=== PATIENT | male | born 1950 | race Caucasian/White ===

== ENCOUNTER → 2019-08-30 08:44 | Outpatient (BNVA) | payer MEDICARE, SELFPAY | PROVIDERS: Family Provider Nurse Practitioner; PCP Nurse Practitioner; Visit Provider Nurse Practitioner | DX: I10 Essential (primary) hypertension (principal) | CPT/HCPCS: 80053 ==

== ENCOUNTER → 2019-09-29 09:12 | Outpatient (BNVA) | payer MEDICARE, SELFPAY | PROVIDERS: Family Provider Nurse Practitioner; PCP Nurse Practitioner; Visit Provider Nurse Practitioner | DX: G89.29 Other chronic pain (principal); M25.562 Pain in left knee; M79.89 Other specified soft tissue disorders | CPT/HCPCS: 73562 ==

== ENCOUNTER → 2019-12-29 14:09 | Outpatient (BNVA) | payer MEDICARE, SELFPAY | PROVIDERS: Family Provider Nurse Practitioner; PCP Nurse Practitioner; Visit Provider Nurse Practitioner | DX: I10 Essential (primary) hypertension (principal); I25.10 Atherosclerotic heart disease of native coronary artery without angina pectoris; G25.81 Restless legs syndrome; R35.0 Frequency of micturition; F41.9 Anxiety disorder, unspecified; R39.11 Hesitancy of micturition | CPT/HCPCS: 80053; 80061; 81000; 85025 ==

== ENCOUNTER → 2020-04-12 08:50 | Outpatient (BNVA) | payer MEDICARE, SELFPAY | PROVIDERS: Family Provider Nurse Practitioner; PCP Nurse Practitioner; Visit Provider Plastic Surgery Plastic Surgery Within the Head and Neck | DX: Z01.812 Encounter for preprocedural laboratory examination (principal); Z11.59 Encounter for screening for other viral diseases | CPT/HCPCS: 87635 ==

== ENCOUNTER → 2020-05-24 09:47 | Outpatient (BNVA) | payer MEDICARE, SELFPAY | PROVIDERS: Family Provider Nurse Practitioner; PCP Nurse Practitioner; Visit Provider Plastic Surgery Plastic Surgery Within the Head and Neck | DX: Z11.59 Encounter for screening for other viral diseases (principal); Z20.828 Contact with and (suspected) exposure to other viral communicable diseases | CPT/HCPCS: 87635 ==

== ENCOUNTER → 2020-06-23 11:48 | Outpatient (BNVA) | payer MEDICARE, SELFPAY | PROVIDERS: Family Provider Nurse Practitioner; PCP Nurse Practitioner; Visit Provider Nurse Practitioner | DX: I10 Essential (primary) hypertension (principal) | CPT/HCPCS: 80053; 80061; 81000 ==

== ENCOUNTER → 2020-11-10 11:29 | Outpatient (BNVA) | payer MEDICARE, SELFPAY | PROVIDERS: Family Provider Nurse Practitioner; PCP Nurse Practitioner; Visit Provider Nurse Practitioner | DX: I10 Essential (primary) hypertension (principal); G25.81 Restless legs syndrome | CPT/HCPCS: 80053; 80061; 83735 ==

== ENCOUNTER → 2021-01-31 08:06 | Outpatient (BNVA) | payer MEDICARE, SELFPAY | PROVIDERS: Family Provider Nurse Practitioner; PCP Nurse Practitioner; Visit Provider Nurse Practitioner | DX: I10 Essential (primary) hypertension (principal); R73.9 Hyperglycemia, unspecified | CPT/HCPCS: 80053; 80061; 81000; 83036; 84443; 85025 ==

== ENCOUNTER → 2021-06-13 08:12 | Outpatient (BNVA) | payer MEDICARE, SELFPAY | PROVIDERS: Family Provider Nurse Practitioner; PCP Nurse Practitioner; Visit Provider Nurse Practitioner | DX: I10 Essential (primary) hypertension (principal); I25.10 Atherosclerotic heart disease of native coronary artery without angina pectoris; Z79.899 Other long term (current) drug therapy | CPT/HCPCS: 80053; 80061; 85025 ==

== ENCOUNTER → 2021-09-07 09:38 | Outpatient (BNVA) | payer MEDICARE, SELFPAY | PROVIDERS: Family Provider Nurse Practitioner; PCP Nurse Practitioner; Visit Provider Nurse Practitioner Family | DX: Z20.822 Contact with and (suspected) exposure to COVID-19 (principal) | CPT/HCPCS: 87635 ==

== ENCOUNTER → 2021-11-20 09:16 | Outpatient (BNVA) | payer MEDICARE, SELFPAY | PROVIDERS: Family Provider Nurse Practitioner; PCP Nurse Practitioner; Visit Provider Nurse Practitioner | DX: M79.671 Pain in right foot (principal); I10 Essential (primary) hypertension | CPT/HCPCS: 73630; 80053; 80061; 85025 ==

== ENCOUNTER → 2022-04-01 15:28 | Outpatient (BNVA) | payer MEDICARE, SELFPAY | PROVIDERS: Family Provider Nurse Practitioner; PCP Nurse Practitioner; Visit Provider Nurse Practitioner | DX: G25.81 Restless legs syndrome (principal); G62.9 Polyneuropathy, unspecified | CPT/HCPCS: 80053; 82607; 84443 ==

== ENCOUNTER → 2022-08-27 10:16 | Outpatient (BNVA) | payer MEDICARE, SELFPAY | PROVIDERS: Family Provider Nurse Practitioner; PCP Nurse Practitioner; Visit Provider Nurse Practitioner | DX: G62.9 Polyneuropathy, unspecified (principal); I10 Essential (primary) hypertension | CPT/HCPCS: 80053; 80061; 84443; 85025 ==

== ENCOUNTER → 2023-03-10 11:39 | Outpatient (BNVA) | payer MEDICARE, SELFPAY | PROVIDERS: Family Provider Nurse Practitioner; PCP Nurse Practitioner; Visit Provider Nurse Practitioner | DX: I10 Essential (primary) hypertension (principal) | CPT/HCPCS: 80053; 80061 ==

== ENCOUNTER → 2023-07-23 16:12 | Outpatient (BNVA) | payer MEDICARE, SELFPAY | PROVIDERS: Family Provider Nurse Practitioner; PCP Nurse Practitioner; Visit Provider Nurse Practitioner | DX: I10 Essential (primary) hypertension (principal); G25.81 Restless legs syndrome; G25.3 Myoclonus; R39.11 Hesitancy of micturition | CPT/HCPCS: 80053; 80061 ==

== ENCOUNTER → 2023-07-24 08:43 | Outpatient (BNVA) | payer MEDICARE, SELFPAY | PROVIDERS: Family Provider Nurse Practitioner; PCP Nurse Practitioner; Visit Provider Nurse Practitioner | DX: I10 Essential (primary) hypertension (principal) | CPT/HCPCS: 81000 ==

== ENCOUNTER → 2023-11-18 14:59 | Outpatient (BNVA) | payer MEDICARE, SELFPAY | PROVIDERS: Family Provider Nurse Practitioner; PCP Nurse Practitioner; Visit Provider Nurse Practitioner | DX: M25.562 Pain in left knee (principal) | CPT/HCPCS: 73562 ==

== ENCOUNTER → 2024-01-14 11:46 | Outpatient (BNVA) | payer MEDICARE, SELFPAY | PROVIDERS: Family Provider Nurse Practitioner; PCP Nurse Practitioner; Visit Provider Nurse Practitioner | DX: I10 Essential (primary) hypertension (principal); F41.9 Anxiety disorder, unspecified; Z12.5 Encounter for screening for malignant neoplasm of prostate | CPT/HCPCS: 80053; 80061; 84443; G0103 ==

== ENCOUNTER → 2024-02-02 12:15 | Outpatient (BNVA) | payer MEDICARE, SELFPAY | PROVIDERS: Family Provider Nurse Practitioner; PCP Nurse Practitioner; Referring Provider Nurse Practitioner; Visit Provider Nurse Practitioner | DX: M17.12 Unilateral primary osteoarthritis, left knee (principal) | CPT/HCPCS: 36415; 80053; 81001; 85025; 99204 ==

== ENCOUNTER 2024-02-10 09:06 | Outpatient (CLI) | payer MEDICARE, SELFPAY ==
--- NOTE | 2024-02-10 09:00 | CT_ITS ---
WS: [id number] CT LEFT KNEE, NONCONTRAST [facility] TECHNIQUE: Noncontrast CT of the LEFT knee to include the LEFT hip and ankle. CLINICAL INFORMATION: surgical planning COMPARISON: None. DLP: 998.[address] scans at [facility] use at least one of these dose optimization techniques: automated e xposure control; mA and/or kV adjustment per patient size (includes targeted exams where dose is matc hed to clinical indication); or iterative reconstruction. FINDINGS: Moderate tricompartment arthritis LEFT knee. Hypertrophic patella. Trace soft tissue edema about the knee. Vascular calcification. Enlarged prostate. Recommend correlation PSA. Extensive sigmoid diverticulosis partially visualized. CT/CT knee LT [place] [id number] IMPRESSION: Images obtained for preoperative purposes.
== END 2024-02-10 09:07 | disposition home or self-care (01) ==
PROVIDERS: PCP Nurse Practitioner; Visit Provider Nurse Practitioner
DX: M17.12 Unilateral primary osteoarthritis, left knee (principal); M79.4 Hypertrophy of (infrapatellar) fat pad; N40.0 Benign prostatic hyperplasia without lower urinary tract symptoms; K57.90 Diverticulosis of intestine, part unspecified, without perforation or abscess without bleeding
CPT/HCPCS: 73700

== ENCOUNTER → 2024-02-11 09:05 | Outpatient (BNVA) | payer MEDICARE, SELFPAY | PROVIDERS: PCP Nurse Practitioner; Visit Provider Family Medicine | DX: Z01.818 Encounter for other preprocedural examination (principal) | CPT/HCPCS: 93005 ==

== ENCOUNTER 2024-02-16 08:03 | Outpatient (CLI) | payer MEDICARE, SELFPAY ==
--- NOTE | 2024-02-16 08:16 | XR_ITS ---
WS: [id number] Left knee, standing AP views of both knees, lateral and patellar view of the left knee, 02/16/2024 Clinical Data: left knee pain Comparison: Left knee, 11/18/2023 Findings: The AP view of the right knee shows minimal medial joint compartment narrowing. The left knee shows medial joint compartment narrowing. There are no fractures or dislocations. The p osterior patella shows minimal spurring. The soft tissues show vascular calcification. XR/XR knees AP WB w LT lmt ORTH Impression: 1. Negative AP view of the right knee. 2. Minimal osteoarthritis of the left knee Kellgren-Jeremy Classification: grade 2 (minimal): definite osteophytes and p ossible joint space narrowing of the left knee.
== END 2024-02-16 08:04 | disposition home or self-care (01) ==
LOC: RAD 08:03
PROVIDERS: PCP Nurse Practitioner; Visit Provider Nurse Practitioner
DX: M25.562 Pain in left knee (principal); M17.12 Unilateral primary osteoarthritis, left knee
CPT/HCPCS: 73560; 73565

== ENCOUNTER 2024-02-19 16:08 | Observation (INO) | payer MEDICARE, SELFPAY ==
--- OUTSIDE RECORDS SUMMARY | 2024-02-05 15:20 | XMS_ITS | Patient Health Record ---
Author Name Unknown Organization [facility] Address [address] [place] [address] Care Team Providers Care Canvas Cutter Machine Name Role Phone Chris Lin Unavailable [phone] Reason For Referral No Information Medications Medication SIG (Take, Route, Frequency, Duration) Notes Start Date End Date Status Cetirizine HCl 10 MG Take 1 tab(s) by mouth qd prn allergies. Oral for 30 Cetirizine HCl 10mg Tablet Take 1 tab(s) by mouth qd prn allergies. 01/22/2012 Active clonazePAM 1 MG 1 tab po qd Oral for 30 Clonazepam 1mg Tablet 1 tab po qd 01/22/2012 Active Aspirin (ASA) for 0 *please review f or potential update for e-prescription and drug interaction check* Aspirin (ASA) 01/22/2012 Active Tamsulosin HCl 0.4 MG 1 cap(s) po qd prn Oral for 30 Tamsulosin HCl 0.4mg Capsules 1 cap(s) po qd prn 01/22/2012 Active Lisinopril 5 MG Take 1 tablet(s) by mouth daily Oral for 30 Lisinopril 5mg Tablet Take 1 tablet(s) by mouth daily 01/22/2012 Active Nitrostat 0.4 MG Dissolve 1 tablet(s) under the tongue may repeat every 5 minutes. Maximum of 3 doses in 15 minutes Sublingual for 30 Nitrostat 0.4mg Tablets, Sublingual Dissolve 1 tablet(s) under the tongue may repeat every 5 minutes. Maximum of 3 doses in 15 minutes 01/22/2012 Active HYDROcodone-Acetami nophen 7.5-500 mg 1 tab(s) po BID prn severe pain ORAL for 30 *please review for potential update for e-prescription and drug interaction check* Hydrocodone/Acetami nophen 7.5mg/500mg Tablet 1 tab(s) po BID prn severe pain 01/22/2012 Active PARoxetine HCl 20 MG Oral for 0 Paroxetine HCl 20mg Tablet 01/22/2012 Active Problems Problem Type SNOMED Code ICD Code Onset Dates Problem Status W/U Status Risk Notes Problem Chronic hepatitis C (951736998) Chronic hepatitis C (without coma) (070.54) 2 Active confirmed [facility]-[id number] 1- Problem Shoulder pain (66848513) Shoulder pain (719.41) 2 Problem resolved confirmed [facility]-[id number] 1- Plan Of Treatment No Information Medical (General) History Surgical History Surgery Date(Month/Year) CholecystectomyTonsillectomy Other Surgeries:Hernia RepairVasectomyVaricose vein stripping;Bilateral carpal tunnel release;Ulnar nerve transplant in the right arm;
[2024-02-19] VITALS (16 sets, daily range): BP systolic 94–144; BP diastolic 51–83; PULSE 62–70; RESP 16–19; TEMP 36.1–36.8; O2SAT 93–99
--- OUTSIDE RECORDS SUMMARY | 2024-02-19 10:20 | XMS_ITS | Patient Health Record ---
Author Name Unknown Organization [facility] Address [address] [place] [address] Care Team Providers Care Bus Driver [employer] Name Role Phone Chris Lin Unavailable [phone] Reason For Referral No Information Medications Medication [...] Status Risk Notes Problem Chronic hepatitis C (919775367) Chronic hepatitis C (without coma) (070.54) 2 Active confirmed [facility]-[id number] 1- Problem Shoulder pain (14578844) Shoulder pain (719.41) 2 Problem resolved confirmed [facility]-[id number] 1- Plan Of Treatment No Information Medical (General) History Surgical History Surgery Date(Month/Year) CholecystectomyTonsillectomy Other Surgeries:Hernia RepairVasectomyVaricose vein stripping;Bilateral carpal tunnel release;Ulnar nerve transplant in the right arm;
[2024-02-19] MEDS: sodium chloride 0.9% 1,000 ML 30 ML IV (10:59)
[2024-02-19] MEDS: acetaminophen 1,000 MG/100 ML PIGGYBACK 400 MG IV ×2 (11:01→19:37)
[2024-02-19] MEDS: CELEcoxib 200 mg Capsule 400 MG PO (11:02)
--- NOTE | 2024-02-19 11:11 | P.HPUD_ITS ---
Surgery/Procedure H&P Update DATE OF PROCEDURE: February 19, 2024 DATE H&P PERFORMED: 02/11/24 H&P UPDATE INFORMATION: I have reviewed H&P completed within last 30 days, I have examined patient prior to procedure, No changes to prior documentation and H&P is in [facility] EMR on date indicated PLANNED PROCEDURE: Operation Date: 02/19/24 12:05 Proposed Procedures p Justin Robot Total Knee Arthroplasty(Left) - Bridgette Palmer MD Related Problem List Diagnoses (1) Osteoarthritis of left knee: Qualifiers: Osteoarthritis type: primary Qualified Code(s): M17.12 - Unilateral primary osteoarthritis, left knee
--- NOTE | 2024-02-19 11:48 | ANES.PREANE2 ---
Pre-Anesthetic Assessment Height/Weight: Height 1.8 m Weight 91.626 kg Temp Pulse Resp BP Pulse Ox O2 Del Method 97 F L 70 18 144/69 97 Room Air 02/19/24 10:47 02/19/24 10:47 02/19/24 10:47 02/19/24 10:47 02/19/24 10:47 02/19/24 10:47 Operation Date: 02/19/24 12:05 Proposed Procedures p Justin Robot Total Knee Arthroplasty(Left) - Bridgette Palmer MD Last intake: Intake Last Liquid Date 02/18/24 Last Liquid Time 00:00 Last Solid Date 02/18/24 Last Solid Time 17:00 Social Tobacco 60 pack years Exam alert, oriented x 3, clear to auscultation bilaterally and regular rate & rhythm Airway Submandibular: within normal limits Cervical ROM: within normal limits Mallampati: Class I Pulmonary prolonged expiratory phase CV/HEM Coronary Artery Disease and Hypertension None reported Hepatic None reported GI None reported Metabolic None reported Musc/skel None reported Neuropsych None reported Anesthetic Plan ASA status: 3 Anesthesia: Regional (specify below) Other: SPINAL plus adductor canal block for post op pain Risk of > 500 ml blood loss (7ml/kg in children): Yes, adequate IV access and fluids planned Medications/Allergies Home Medications Medication Instructions Recorded Confirmed Last Taken Type nitroglycerin 0.4 mg sublingual 0.4 mg sublingual Q5M PRN chest 06/14/21 02/18/24 02/18/24 Rx tablet (Nitrostat) pain 30 days #30 tabs diclofenac sodium 1 % topical gel 2 g topical QID PRN pain #100 grams 11/20/21 02/18/24 02/18/24 Rx (Voltaren Arthritis Pain) amlodipine 5 mg tablet 5 mg PO DAILY #100 tabs 01/14/24 02/19/24 02/18/24 Rx atorvastatin 40 mg tablet 40 mg PO DAILY #100 tabs 01/14/24 02/18/24 02/18/24 Rx gabapentin 300 mg capsule See Rx Instructions PO .COMPLEX 01/14/24 02/19/24 02/19/24 Rx #300 caps oxybutynin chloride 5 mg tablet 5 mg PO DAILY #100 tabs 01/14/24 02/19/24 02/18/24 Rx tamsulosin 0.4 mg capsule (Flomax) 0.4 mg PO DAILY #100 caps 01/14/24 02/19/24 02/18/24 Rx aspirin 81 mg tablet,delayed 81 mg PO DAILY 02/11/24 02/18/24 02/14/24 History release cyanocobalamin (vitamin B-12) 1,000 mcg PO DAILY 02/11/24 02/19/24 02/19/24 History 1,000 mcg tablet potassium citrate 99 mg capsule 99 mg PO DAILY 02/11/24 02/19/24 02/18/24 History Allergies Allergy/AdvReac Type Severity Reaction Status Date / Time latex Allergy Unknown Unknown Verified 02/11/24 09:20 apixaban [From Eliquis] Allergy ALGY-Difficulty Verified 02/11/24 09:20 Breathing lincomycin [From Lincocin] Allergy chest Verified 02/11/24 09:20 pain, shortness of breath Current Medications Generic Name Dose Route Start Last Admin Trade Name Freq PRN Reason Stop Dose Admin Sodium Chloride 1,000 mls @ 30 mls/hr 02/19/24 10:30 02/19/24 10:59 Sodium Chloride 0.9% IV 02/20/24 10:29 30 mls/hr .Q24H JANNETH Administration PFSH Anesthesia Medical History Osteoarthritis of left knee Personal history of nicotine dependence Urinary hesitancy Pacemaker Restless legs syndrome with nocturnal myoclonus Anxiety Seasonal allergic rhinitis Urine frequency ASHD (arteriosclerotic heart disease) Essential (primary) hypertension History of skin cancer Head History of cardiac pacemaker in situ 2018 Surgical History History of heart bypass surgery 5 grafts History of decompression of ulnar nerve Right arm with transplant History of nasal surgery History of arthroscopy of right shoulder History of hernia repair Right History of vasectomy History of carpal tunnel surgery Bilateral History of tonsillectomy History of cholecystectomy Family History Mother CAD (coronary artery disease) Hypertension Father Hypertension Other Diabetes Social History Smoking and tobacco/nicotine status: current every day tobacco/nicotine user cigarettes Second hand smoke exposure: No Alcohol intake: unknown Substance/Drug Use: never Adopted: No Caregiver/support person: No Lives independently: Yes Household members: spouse Housing: House Marital status: Current occupational status: retired Do you think of yourself as: Straight/Heterosexual Current gender identity: Male Data Anesthesia Cardiac Studies: No Data to Display
[2024-02-19] MEDS: ceFAZolin 2,000 MG in sodium chloride 0.9% (plus) 50 ML 100 MG IV (12:09)
--- NOTE | 2024-02-19 12:39 | ANES.PROC ---
Anesthesia Procedures Procedure/Date: 02/19/24 Nerve Block ^: Nerve Block 1: Main Anesthesia: spinal anesthesia block Time Out Performed: Yes Consent: requested by attending/covering physician Nerve block location: adductor canal (left) Anesthesia monitors applied: pulse oximetry, EKG, BP cuff and oxygen Nerve block position: supine Anesthetic Used: ropivicaine 0.5% Amount of anesthesia used (mL): 30 Ultrasound used to: recognize landmarks Nerve Stimulator Used?: No Interscalene/Femoral BLK: 4 stimuplex 21 g needle used for position and inplane approach and visualize local anesthetic spread Injection: neg aspiration of heme Patient Tolerated Procedure: no complications Complications: none
[2024-02-19] MEDS: tranexamic acid 1,000 mg/10mL SDV 1000 MG IV (12:50)
[2024-02-19] MEDS: ceFAZolin 1,000 mg SDV 2000 MG IRRIGATION (13:18)
[2024-02-19] MEDS: BUPivacaine liposome 13.3 mg/mL SDV 20 mL 266 MG INFILTRATI (13:19)
[2024-02-19] MEDS: BUPivacaine 0.5% INJ 30 mL 20 ML INJECTION (13:19)
[2024-02-19] MEDS: vancomycin 1,000 MG SDV 1000 MG XX (13:19)
--- NOTE | 2024-02-19 15:00 | XRR_ITS ---
PROCEDURE INFORMATION: Exam: XR Left Knee Exam date and time: 02/19/2024 3:11 PM Age: 74 years old Clinical indication: Device placement; Joint replacement hardware; Prior surgery; Surgery date: Post-operative (0-2 days); Surgery type: Left total knee arthroplasty; Additional info: Status post left total knee arthroplasty TECHNIQUE: Imaging protocol: Radiologic exam of the left knee. Views: 1 or 2 views. COMPARISON: CR XR knees AP WB w LT lmt ORTH 02/16/2024 8:24 AM FINDINGS: Bones/joints: New total knee replacement in good alignment. No evidence of infection, fracture or loosening. There are 3 lucencies well-demarcated within the distal femur proximal to the replacement. This could be postoperative but no metal was seen or abnormality seen on these and in a joshi 3 days ago in this needs to be clinically correlated. Joint air. Three well demarcated lucencies are seen on the lateral view involving the proximal tibia just distal to the replacement which are new. Soft tissues: Normal. Vasculature: Stable vascular calcifications. XR/XR knee LT 1-2V [id number] IMPRESSION: 1. New total knee replacement. 2. Multiple lucencies in both the tibia and femur questionably prior instrumentation. This needs clinical and surgical correlation.
--- NOTE | 2024-02-19 15:05 | P.OP_ITS ---
Operative Report Date of procedure: February 19, 2024 Pre-op diagnosis: Severe degenerative osteoarthritis left knee with varus deformity Post-op diagnosis: Severe degenerative osteoarthritis left knee with varus deformity Post-op findings: Severe degenerative osteoarthritis left knee with varus deformity. Procedure done: Left total knee arthroplasty with Justin guidance Implants: [employer] [place] total knee system with a size 6 triathlon beaded cruciate retaining femur left, a triathlon titanium tibial component size 6 beaded, a triathlon X3 tibial bearing CS insert size 6 X 9 mm and a beaded triathlon titanium asymmetric patella size 38 x 11 mm Specimens removed/disposition: Bone, disposed of Pathology: None Surgeon: Bridgette Palmer MD Industrial Fabric Cutter: Adenike Nieto, nurse practitioner, surgical assistance was necessary for positioning, retraction, implantation, and closure for the surgical procedure. Anesthesia: Spinal (With MAC, ASA 3) Estimated blood loss (mL): 70 Tourniquet time (min): 0 (No Butler) IV fluids (mL): 450 Urine output (mL): 500 Complications: None Findings: Severe degenerative osteoarthritis with varus deformity and minimal flexion contracture. Complete denudement of bone. Condition: stable Disposition: PACU (Then to floor for postoperative rehabilitation and pain management) Brief History: This 74-year-old gentleman presented to the clinic with complaints of severe left knee pain. At time of presentation, he stated his pain was 5 of 10, but he also noted it worsened as the day went on. He describes the pain as under the kneecap and sharp and stabbing. Patient also noted his knee swelled and he would use ice. He had performed a home exercise program without success and relief of the pain. Conservative treatments were discussed in detail with the patient. He had had the pain for several years and had it worsening with no response to conservative managements. He had taken oral anti-inflammatories as well as use topical anti-inflammatories. He also had had previous cortisone injections to the knee. Patient wished to proceed with total knee arthroplasty. Risks and complications were discussed with patient and his . Consents were signed in the office. Questions were answered. Procedure: The patient was brought to the operating theater, and after undergoing spinal anesthetic, with MAC and with supplemental adductor canal block, ASA 3, the left lower extremity was prepped with Dura-Prep and draped in usual fashion following placement of a tourniquet high on the leg. The leg was then draped free.? Tourniquet was not elevated during the case.? A surgical pause was performed, and at the time of the surgical pause, we confirmed the site and side of surgery. Additionally, we confirmed the appropriate and timely administration of preoperative antibiotics, Ancef 2 g.? The availability of equipment was confirmed, and the patient's identity was verbalized as well. Following the surgical pause, an incision was made centering over the patella continuing proximally and distally as necessary to allow access to the knee joint. Dissection continued through skin and soft tissues using a scalpel. Hemostasis was obtained using electrocautery. The skin incision was followed by a median parapatellar arthrotomy. The leg was extended and the patella was able to be displaced laterally.? Appropriate arrays and markers were placed in appropriate position for use of the Justin.? Preoperative planning had been accomplished and was discussed in detail with the Justin medical collections representative.? Intraoperative mapping of the femur and tibia was accomplished after the arrays were placed.? Internal markers were also placed.? Once we had accomplished the Justin mapping, we began the appropriate resections for placement of the prosthesis.? The plan was for a cruciate retaining right total knee arthroplasty. Once appropriate mapping had been accomplished retraction was established using manual retraction by surgical technicians and also the Justin leg positioner and retractors.? The knee was evaluated.? There was significant osteoarthritic change as well as very minimal flexion contracture as well as varus deformity.? Appropriate bone resection was accomplished using the Justin.? The femur was sized to a size 6.? Following femoral cuts, attention was directed to the tibia.? Osteophytes were removed prior to this portion of the procedure.? We had performed a minimal medial release at the beginning of the procedure to allow for placement of the array.? Proximal tibia was evaluated, and it was felt that appropriate size for the tibia was a size 6.? Tray was noted to fit nicely with good coverage.? Rim fit was accomplished with the size 6. A trial reduction was accomplished after osteophytes have been removed as well as the medial and lateral menisci.? We had removed the anterior cruciate ligament at the beginning of the case and preserved the posterior cruciate ligament.? Trial reduction was accomplished with a size 6 femoral cruciate retaining component, a size 6 tibial tray and a size 6 CS tibial bearing insert which was 9 mm.? Secondary to the balancing of the knee, we elected to place a 9 mm insert for the actual component. Alignment was felt to be appropriate as well.? Trial components were removed after the femur had been drilled.? Prior to removal of the tibial tray which had been pinned in position with appropriate rotation as determined by the Justin plan, we broached the tibia.? Subsequently, the 4 drill holes were made for the prosthetic component.? All trial components were removed, and the wound was irrigated.? Plans were made for insertion of the prosthetic components.? Prior to this, the patella was manually prepared.? After resection of the articular surface with the jogging system, it was measured and measured a 38 mm patella.? We resected approximately 10 mm of patella.? Patellar height was restored with the patellar component. Once again, the wound was irrigated.? The Tritanium tibia was impacted into position.? The beaded femur was then impacted into position in a cementless fashion. The CS tibial insert was placed prior to placement of the femoral component. The patella was pressed into position with a patellar clamp.? Exparel was injected about the components deep and superficially.? The knee was then copiously irrigated with betadine and saline and suctioned dry. Attention was then directed to closure. Closure was accomplished with 0 Vicryl in the fascial tissues.? The suture line of 0 Vicryl was supplemented with strata fix, #1, with a running stitch from proximal to distal and a second running stitch from distal to proximal.? This was followed by Surgiflo and vancomycin powder.? Following this, a 2-0 STRATAFIX was used in the subcutaneous tissues, and the skin was closed with 3-0 Strata fix.? Care was taken to assure an excellent subcutaneous as well as skin closure.? A sterile dressing was then placed consisting of Dermabond Prineo, OpSite, ABD, sterile soft roll, and an Maurisio wrap including over the foot. The patient was returned the Recovery Room in a satisfactory condition. X-rays were obtained and reviewed there.? The patient will be discharged to the floor for postoperative rehabilitation and pain management. Related Problem List Diagnoses (1) Osteoarthritis of left knee:
--- NOTE | 2024-02-19 15:35 | ANE.PACU2 ---
Inpatient post-anesthesia follow up: Airway intact: Yes Vital signs: Temperature 97.3 F Pulse Rate 65 Respiratory Rate 16 Blood Pressure 113/62 Pulse Oximetry 94 Oxygen Delivery Me thod Room Air Oxygen Flow Rate 8 Fraction of Inspir ed Oxygen Hydration adequate: Yes Nausea and vomiting: No Pain level: Other (controlled) Mental status: Baseline Additional Comments: no apparent anesthetic complications noted
--- NOTE | 2024-02-19 15:44 | SUR.EXTENDED ---
Patient in extended care. PAtient is awake and alert on room air with sats at 94%. Patient can move both feet/legs but states cannot feel pain. PEdal pulse to left foot strong. dressing to left knee is dry and intact. Patient has charles draining clear yellow urine. first ice in place on left knee. patient taking fluid and eating crackers. VSS. will continue to monitor in extended care phase.
--- NOTE | 2024-02-19 16:33 | SUR.EXTENDED ---
Patient transported to room 269, Nurse Jean and aid in room on arrival. Patient awake and alert. Patient still able to move both legs and feet, reports no pain. Dressing in place and dry and intact. charles in place and draining. VS obtained: 97.3 temp, 119/74, 72 hr, 17 rr, 94% RA. Patient's family at bedside on transport.
[2024-02-19] MEDS: CELEcoxib 200 mg Capsule PO (17:26)
[2024-02-19] MEDS: calcium carbonate 500 mg Chew Tablet 1000 MG PO (17:26)
[2024-02-19] MEDS: chlorhexidine gluconate 0.12% Btl 473 mL 30 ML MUCOUS MEM ×2 (17:26→20:04)
[2024-02-19] MEDS: iron polysaccharide complex 150 mg Capsule PO (17:26)
[2024-02-19] MEDS: sennosides-docusate Tablet 2 TAB PO (17:26)
[2024-02-19] MEDS: tranexamic acid 1,000 MG/100 ML PREMIX 600 MG IV (19:59)
[2024-02-19] MEDS: ceFAZolin 2,000 mg SDV 2000 MG IVP (20:04)
[2024-02-19] MEDS: water for injection-sterile 20 ML 60 ML (20:04)
[2024-02-19] MEDS: oxyCODONE 5 mg IR Tab/Cap PO (23:01)
[2024-02-20 04:00] VITALS: BP 126/66; PULSE 61; RESP 18; TEMP 36.7; O2SAT 94
[2024-02-20] MEDS: acetaminophen 1,000 MG/100 ML PIGGYBACK 400 MG IV (04:57)
[2024-02-20] MEDS: CELEcoxib 200 mg Capsule PO (04:58)
[2024-02-20] MEDS: gabapentin 300 mg Capsule PO (04:58)
[2024-02-20] MEDS: ceFAZolin 2,000 mg SDV 2000 MG IVP (04:59)
[2024-02-20 05:26] LABS: Basophils % 0.2 %; Eosinophils # 0.2 10^3/uL (0.0-0.8); Eosinophils % 2.2 %; Hematocrit 38.3 % (37-53); Lymphocytes # 0.8 10^3/uL (0.8-4.8); Lymphocytes % 9.2 %; Mean Corpuscular HGB Conc 32.6 g/dL (30-55); Mean Corpuscular Hemoglobin 30.9 pg (27-33); Mean Corpuscular Volume 94.8 fl (82-101); Mean Platelet Volume 10.6 fL (7.4-10.4); Monocytes # 0.7 10^3/uL (0.2-0.9); Monocytes % 8.4 %; Neutrophils # 6.94 10^3/uL (1.8-7.7); Neutrophils % 79.7 %; Nucleated Red Blood Cells % 0 %; Platelet Count 149 10^3/cmm (157-399); Red Blood Count 4.04 10^6/uL (3.85-5.65); Red Cell Distribution Width 12.5 % (12.1-15.1); White Blood Count 8.71 10^3/uL (3.29-11.43)
[2024-02-20 05:39] LABS: Anion Gap 12.3 (5-19); Blood Urea Nitrogen 15 mg/dL (8-23); Calcium 8.1 mg/dL (8.5-10.5); Carbon Dioxide 23 mmol/L (22-29); Chloride 108 mmol/L (98-107); Creatinine Clr Calc Pharmacy 65.4459; Glucose 104 mg/dL (65-115); Osmolality Calculated 289 mOsm/kg (285-295); Potassium 4.3 mmol/L (3.5-5.1); Sodium 139 mmol/L (136-145)
--- NOTE | 2024-02-20 06:05 | PC.NURSE ---
So when I was walking around at 1:30 am I smelled smoke and I was like what the heck just happened. So I informed Abdulkadir and Krupa. Just a heads up that he was accusing us and wanting to report and also do a court order which was not really necessary at all so he was just a little ticked at the charge nurse and some of the TRACK BROOM OPERATOR's
--- NOTE | 2024-02-20 06:19 | PC.NURSE ---
Addendum entered by Demi Villanueva CNA 02/20/24 06:46: This aide was alerted by Deann Zazueta, a respiratory therapist, of a smoke smell in the hallway. This aide along with the respiratory therapist, Henrry Cervantes RN and Lauri Montes De Oca CNA followed the scent to room 269 where the smell was very prominent. The smell was strongest in the patients bathroom. The nurse proceeded to ask the patient if he had smoked in his room, to which the patient denied. The nurse noticed the patients belongings and a pack of cigarettes were visible. The nurse asked the patient again if he had smoked and he denied again. The nurse educated the patient on the hospitals tobacco policy and the safety issues regarding tobacco use in the hospital setting, and the policy to remove tobacco products. The nurse asked the patient if she could remove the cigarettes and he was apprehensive but agreed. The aide witnessed the nurse removing the cigarettes in front of the patient. Original Note: This nurse was approached by Deann Zazueta, a respiratory therapist, around 0130 asking if I smelled cigarette smoke. This nurse as well as Demi Zacarias CNA and Lauri PROCTOR followed the smell to room 269. When arriving in the room the bathroom as well as the entryway to the patients room smelled like cigarette smoke. The patient is a known smoker. This nurse asked the patient if he had smoked in his room and the patient denied use of any tobacco products. I educated the patient on tobacco policy in the hospital as well as safety issues. The patient continued to deny smoking. This nurse looked over and saw the patients belongings in the window of the room in a clear bag, and a pack of cigarettes was visible. This nurse asked the patient if they had smoked again due to knowing he had tobacco in his room and the patient denied. This nurse educated the patient on the Hospital policy to remove tobacco products when found due to safety risks and the patient was apprehensive and said whatever, this is bullshit . I asked the patient again and he said yes. This nurse reached in and pulled cigarettes out of the patients belonging bag in front of the patient and other witnesses stated above. During medication pass around 0450 this am this nurse walked into the patients room and the patient stated I'm really pissed at yall, you are accusing me of smoking and saying I lied. ... I don't care who but someone is going to bring me my cigarettes right now . I educated the patient on the hospital policy again and told him that they had to stay locked up while he was here and he could have them back when discharged. I also told the patient that I could ask his provider for a nicotine patch or gum and the patient denied . The patient kept getting aggravated and demanding his cigarettes to be returned and was not allowing me to speak. I told the patient I would go get my charge nurse for him and left the room. This nurse reported the incident and occurrences to the charge nurse Krupa Gillis as well as housekeeping cleaner Olena and security.
[2024-02-20 08:00] VITALS: BP 135/68; PULSE 68; RESP 20; TEMP 37.5; O2SAT 93
--- NOTE | 2024-02-20 08:01 | PC.NURSE ---
SMOKING POLICY EDUCATION this sign writer hand was informed by the patient care nurse Casi BRONSON that the scent of cigarette smoke had been traced back to the patient room and bathroom by several staff members. the patient denied smoking in his room several times. the policy and safety of everyone on the floor was informed to the patient and patient care nurse asked to retrieve a pack of cigarettes that was visibly apparent within a clear plastic bag that had personal belongings of the patient within. patient verbalized his displeasure with the request but conceded allowing his nurse to remove and lock it up. several hours later Chuy Arora informed this sign writer hand of increase in agitation. the patient had become increasingly hostile with comments that staff was implying he was a liar by not taking his word and confiscating his personal belongings, remarking that staff had no cause or founding. this sign writer hand accessed the hospital portal and retrieved the currently enforced hospital policy concerning tobacco use on campus and printed the document, highlighting the section regarding patients. this document was taken to the patient room and reviewed with the patient, reinforcing the fact that locking the tobacco products was hospital policy for suspicion and/or confirmed use of such products within the hospital [place]. while attempting to convey this information the patient continuously interrupted this sign writer hand, talked over this sign writer hand, and dismissed this writers attempt to convey that insinuating he was a liar was not the intent of floor staff but merely staff adherence to protocol in such situations. the patient was defensively stating that the smell could have come from a staff member smoking in his room while he slept and there was no definite proof and that the situation was embarrassing for him. the section of policy stating that action taken for suspicion of use was reiterated as well as an apology expressed for the embarrassment as that was not the intent of this sign writer hand and floor staff. the patient was told that his cigarettes would be returned at discharge.
[2024-02-20] MEDS: iron polysaccharide complex 150 mg Capsule PO (08:12)
[2024-02-20] MEDS: oxybutynin 5 mg Tablet PO (08:13)
[2024-02-20] MEDS: cholecalciferol (vitamin D3) 1,000 unit Tablet 1000 UNIT PO (08:13)
[2024-02-20] MEDS: tamsulosin 0.4 mg Capsule PO (08:13)
[2024-02-20] MEDS: amlodipine 5 mg Tablet PO (08:13)
[2024-02-20] MEDS: atorvastatin 40 mg Tablet PO (08:13)
[2024-02-20] MEDS: multivitamin therapeutic Tablet 1 TAB PO (08:13)
[2024-02-20] MEDS: aspirin 325 mg EC Tablet PO (08:13)
[2024-02-20 11:44] VITALS: BP 127/73; PULSE 66; RESP 18; TEMP 36.7; O2SAT 94
--- NOTE | 2024-02-20 11:50 | PC.CHAP ---
Pastoral Care Encounter/Spiritual Assessment Type of Contact [] Declined pyrotechnician visit [] Patient/Family/Request visit [] Outpatient visit [] Follow-up visit [] Physician referral [] Code/Alert [X] Routine visit [] Staff referral [] Actively dying [] Patient sleeping [] Family support [] [] Out of room [] Palliative care [] [] Receiving care in room [] Pre-surgical visit [] Trauma [] Long length of stay [] ICU visit [] Other: Relational/Emotional Strength [X] Patient feels connected with others/family/visitors/staff [] Distress [] Loneliness/isolation [] Abandonment Spirituality of Patient [] Person of Elva [] Attends Rastafarian of their Elva [] Believes in Prayer [] Reads Bible or Baptism materials [X] There are Spiritual issues to be addressed Business Analysis Analyst Interventions [] Prayer [X] Active listening [X] Non-anxious presence [] Spiritual/emotional support [] Crisis/trauma care [] Spiritual counseling [] Bereavement support [] Provided bereavement packet [] Provided Bible/devotional materials [] Provided toy/stuffed animal, coloring book to patient or family member [] Provided Communion [] Anointing/[place] [] Salvation [] Completed spiritual assessment [] Other: Impact on Illness or Injury [] Angry [] Fearful [] Anxious [] Often cries [] Exhaustion [] Unable to work [] Unable to attend mu-ism [] Unable to walk/stand [] Unable to read [] Unable to drive [] Unable to eat/drink [] Unable to sleep [] Unable to be with family [] Patient intubated [] Other: Summary Not Baptism, Ready for check out Time spent with patient 10 Min
[2024-02-20 11:51] VITALS: RESP 18
[2024-02-20] MEDS: oxyCODONE 5 mg IR Tab/Cap PO (11:51)
--- NOTE | 2024-02-20 13:15 | PC.NURSE ---
Medication Note ABX: Upon flushing pts IV before last dose of IVP Cefazolin administration, IV infiltrated and was removed. Pt refused to let this nurse place another IV for last dose of ABX.
--- NOTE | 2024-02-20 14:11 | PM.DCS ---
Discharge Providers Date of Admission: 02/19/24 16:08 Date of Discharge: February 20, 2024 Attending Provider at Admission: Bridgette Palmer MD Attending Provider at Discharge: Bridgette Palmer MD Primary Care Provider: LEV Bloom Diagnoses at Discharge Discharge Diagnosis (1) Status post total left knee replacement: Status: Acute Permanent problem details: Date of procedure: February 19, 2024 Pre-op diagnosis: Severe degenerative osteoarthritis left knee with varus deformity Procedure done: Left total knee arthroplasty with Justin guidance Implants: The Vivienne total knee system with a size 6 triathlon beaded cruciate retaining femur left, a triathlon titanium tibial component size 6 beaded, a triathlon X3 tibial bearing CS insert size 6 X 9 mm and a beaded triathlon titanium asymmetric patella size 38 x 11 mm Surgeon: Bridgette Palmer MD (2) Osteoarthritis of left knee: Status: Chronic Qualifiers: Osteoarthritis type: primary Qualified Code(s): M17.12 - Unilateral primary osteoarthritis, left knee Reason for Visit Reason for Visit: M17.12 Brief History: This 74-year-old gentleman presented to the clinic with complaints of severe left knee pain. At time of presentation, he stated his pain was 5 of 10, but he also noted it worsened as the day went on. He describes the pain as under the kneecap and sharp and stabbing. Patient also noted his knee swelled and he would use ice. He had performed a home exercise program without success and relief of the pain. Conservative treatments were discussed in detail with the patient. He had had the pain for several years and had it worsening with no response to conservative managements. He had taken oral anti-inflammatories as well as use topical anti-inflammatories. He also had had previous cortisone injections to the knee. Patient wished to proceed left total knee arthroplasty. Hospital Course Hospital Course Patient was admitted under observation status following same-day surgery for left total knee arthroplasty. Patient did well following the surgical procedure. He was able to be up in his room the next day and was felt independent and safe for discharge to home. Dressings were dry. His large outer dressing was removed, and there was no evidence of DVT. She was neurologically intact. He felt comfortable as well going home, therefore she was discharged to home. Physical Exam Const: COMMON NORMALS: no acute distress, average body habitus, patient oriented x3, no limitations, alert and well nourished GENERAL APPEARANCE: cooperative; not anxious and not combative ORIENTATION/CONSCIOUSNESS: Yes awake, Yes oriented to person, Yes oriented to place and Yes oriented to time HENMT: COMMON NORMALS: normocephalic and atraumatic HEAD & SCALP: normocephalic and atraumatic Resp: COMMON NORMALS: normal respiratory effort, No retractions and No use of accessory muscles Extremity: LEFT LOWER EXTREMITY: Yes knee joint (Signs or symptoms of infection. No evidence of DVT.) Left knee: Yes inspection (Dressing clean and dry. Minimal swelling. No erythema), Yes palpation (Mild TTP to anterior knee and distal quad.), Yes ROM (Sitting with knee flexed to 90. Able to extend lacking approx 8 degrees.) and Yes neurovascular exam (Sensation intact to light touch. 2+ DP and PT pulses) Neuro: COMMON NORMALS: patient oriented x3 SENSORIUM/ORIENTATION: Yes alert, Yes oriented to person, Yes oriented to place and Yes oriented to time Psych: ATTITUDE: Yes engaged Skin: COMMON NORMALS: no rashes or lesions noted, turgor normal and no jaundice GENERAL SKIN EXAM: no rashes or lesions noted and turgor normal Urinary Catheter Management: Butler Latex Free: Cath Placed During This Visit: yes, but has since been removed by the nurse Reason for Continuing Indwelling Catheter: Decision to DC Catheter Urinary Catheter Date of Insertion: 02/19/24 Urinary Catheter Time of Insertion: 12:35 Date Urinary Catheter Removed: 02/20/24 Time Urinary Catheter Discontinued: 00:00 Discharge Data Studies Completed and Pending Completed Studies During Hospitalization Category Date Time Status XR knee LT 1-2V 64046 Routine Exams 02/19/24 15:00 Completed Pending at discharge Category Date Time Status Complete Blood Count w/Auto AM LABS Lab 02/21/24 04:00 Ordered Complete Blood Count w/Auto AM LABS Lab 02/22/24 04:00 Ordered Radiology Impressions Knee X-Ray 02/19/24 15:00 IMPRESSION: 1. New total knee replacement. 2. Multiple lucencies in both the tibia and femur questionably prior instrumentation. This needs clinical and surgical correlation. Laboratory Results WBC 8.71 10^3/uL (3.29-11.43) 02/20/24 04:52 RBC 4.04 10^6/uL (3.85-5.65) 02/20/24 04:52 Hgb 12.50 g/dL (11.27-16.99) 02/20/24 04:52 Hct 38.3 % (37-53) 02/20/24 04:52 MCV 94.8 fl (82-101) 02/20/24 04:52 MCH 30.9 pg (27-33) 02/20/24 04:52 MCHC 32.6 g/dL (30-55) 02/20/24 04:52 RDW 12.5 % (12.1-15.1) 02/20/24 04:52 Plt Count 149 10^3/cmm (157-399) L 02/20/24 04:52 MPV 10.6 fL (7.4-10.4) H 02/20/24 04:52 Neut % (Auto) 79.7 % 02/20/24 04:52 Lymph % (Auto) 9.2 % 02/20/24 04:52 [place]oun % (Auto) 8.4 % 02/20/24 04:52 Eos % (Auto) 2.2 % 02/20/24 04:52 Baso % (Auto) 0.2 % 02/20/24 04:52 Neut # (Auto) 6.94 10^3/uL (1.8-7.7) 02/20/24 04:52 Lymph # (Auto) 0.8 10^3/uL (0.8-4.8) 02/20/24 04:52 [place]houn # (Auto) 0.7 10^3/uL (0.2-0.9) 02/20/24 04:52 Eos # (Auto) 0.2 10^3/uL (0.0-0.8) 02/20/24 04:52 Baso # (Auto) 0.0 10^3/uL (0.0-0.1) 02/20/24 04:52 Nucleated RBC % (auto) 0 % 02/20/24 04:52 Nucleated RBCs # 0.0 /100WBC 02/20/24 04:52 Sodium 139 mmol/L (136-145) 02/20/24 04:52 Potassium 4.3 mmol/L (3.5-5.1) 02/20/24 04:52 Chloride 108 mmol/L (98-107) H 02/20/24 04:52 Carbon Dioxide 23 mmol/L (22-29) 02/20/24 04:52 Anion Gap 12.3 (5-19) 02/20/24 04:52 BUN 15 mg/dL (8-23) 02/20/24 04:52 Creatinine 1.2 mg/dL (0.7-1.2) 02/20/24 04:52 GFR Calculation Not Reportable 02/20/24 04:52 Glucose 104 mg/dL (65-115) 02/20/24 04:52 Calculated Osmolality 289 mOsm/kg (285-295) 02/20/24 04:52 Calcium 8.1 mg/dL (8.5-10.5) L 02/20/24 04:52 Vitals Last Vital Signs Temp 98.1 F 02/20/24 11:44 Pulse 66 02/20/24 11:44 Resp 18 02/20/24 11:51 BP 127/73 02/20/24 11:44 Pulse Ox 94 02/20/24 11:44 O2 Del Method Room Air 02/20/24 11:44 O2 Flow Rate 8 02/19/24 15:10 Discharge Plan Discharge Patient Disposition: Home Condition: Stable Prescriptions: New aspirin 325 mg Tablet,Delayed Release (Dr/Ec) 325 mg PO DAILY Qty: 90 0RF celecoxib 200 mg Capsule 200 mg PO 1XD 90 Days Qty: 90 0RF hydrocodone-acetaminophen 7.5-325 mg tablet 1 tab PO TID PRN (Reason: pain) Qty: 15 0RF Continued nitroglycerin [Nitrostat] 0.4 mg tablet, sublingual 0.4 mg SUBLINGUAL Q5M PRN (Reason: chest pain) 30 Days Qty: 30 2RF diclofenac sodium [Voltaren Arthritis Pain] 1 % gel 2 g topical QID PRN (Reason: pain) Qty: 100 1RF Rx Instructions: apply to single to painful area head cyanocobalamin (vitamin B-12) 1,000 mcg tablet 1,000 mcg PO DAILY potassium citrate 99 mg capsule 99 mg PO DAILY amlodipine 5 mg tablet 5 mg PO DAILY Qty: 100 1RF atorvastatin 40 mg tablet 40 mg PO DAILY Qty: 100 1RF gabapentin 300 mg capsule See Rx Instructions PO .COMPLEX Qty: 300 1RF Rx Instructions: 300mg AM 600mg PM orally; tamsulosin [Flomax] 0.4 mg capsule 0.4 mg PO DAILY Qty: 100 1RF oxybutynin chloride 5 mg tablet 5 mg PO DAILY Qty: 100 1RF Hold Instructions: Doctor's Order Discontinued aspirin 81 mg tablet,delayed release (DR/EC) 81 mg PO DAILY Discharge Orders: Discharge Order (Routine); Ordered 02/20/24 Ordered By: Adenike Nieto Referrals: Bridgette Palmer MD [Physician] - 03/10/24 11:15 pm Discharge Diet: Advance as tolerated and Usual diet Discharge Activity: Increase activity as tolerated, Limit activity as instructed, Use walker/crutches as instructed and As per PT/OT instructions Patient Instructions: Acute Wound Care (DC), Total Knee Replacement (GEN), Joint Replacement Stoplight, Opioid Safety, Post Anesthesia Care Activity Restrictions/Additional Instructions: Weightbearing as tolerated left lower extremity. Range of motion, gait training, and ambulation per physical therapy. You may shower, but do not soak your knee in water. Remove the large outer dressing that is clear with a pad in the middle after approximately 2 weeks. If it comes off sooner that is okay. He may continue to shower, but do not soak your knee. Ice and elevation to left lower extremity. Discharge Attestations Time Spent in Discharge Care*: greater than 30 min Quality Metrics Clinical Quality Measures [ No reported AMI, CVA or VTE this stay] Coding Level of Care Code Acute Code for Chg Fwd Diagnoses Status post total left knee replacement Z96.652 Primary osteoarthritis of left knee M17.12 Osteoarthritis type: primary
== END 2024-02-20 14:48 | disposition home or self-care (01) ==
LOC: MEDSURG 16:09
PROVIDERS: Nurse Practitioner; Admitting Provider Specialist; PCP Nurse Practitioner; Visit Provider Specialist
PROC: 8E0Y0CZ Robotic Assisted Procedure of Lower Extremity, Open Approach (ICD-10-PCS; CPT 27447; principal; 2024-02-19 11:35)
DX: M17.12 Unilateral primary osteoarthritis, left knee (principal); M21.162 Varus deformity, not elsewhere classified, left knee; I25.10 Atherosclerotic heart disease of native coronary artery without angina pectoris; I10 Essential (primary) hypertension; Z95.0 Presence of cardiac pacemaker; F17.210 Nicotine dependence, cigarettes, uncomplicated
CPT/HCPCS: 20985; 27447; 36415; 51702; 73560; 80048; 85025; 97110; 97116; 97161; 97165; C1776; C9290; G0378; J0131; J0690; J1200; J2371; J2704; J3010; J3370; J3490; J7030; P9045

== ENCOUNTER → 2024-03-10 10:22 | Outpatient (BNVA) | payer MEDICARE, SELFPAY | PROVIDERS: PCP Nurse Practitioner; Visit Provider Specialist | DX: Z96.652 Presence of left artificial knee joint (principal); M17.12 Unilateral primary osteoarthritis, left knee | CPT/HCPCS: 73560; 73565; 99024 ==

== ENCOUNTER → 2024-04-21 09:27 | Outpatient (BNVA) | payer MEDICARE, SELFPAY | PROVIDERS: PCP Nurse Practitioner; Visit Provider Nurse Practitioner | DX: Z96.652 Presence of left artificial knee joint (principal) | CPT/HCPCS: 99024 ==

== ENCOUNTER 2024-04-28 06:00 | Outpatient (RCR) | payer MEDICARE, SELFPAY | END 2024-05-10 23:59 | disposition home or self-care (01) | LOC: APT 06:00 | PROVIDERS: PCP Nurse Practitioner; Visit Provider Specialist | DX: Z47.1 Aftercare following joint replacement surgery (principal); Z96.652 Presence of left artificial knee joint | CPT/HCPCS: 97161 ==

== ENCOUNTER → 2024-06-30 12:38 | Outpatient (BNVA) | payer MEDICARE, SELFPAY | PROVIDERS: PCP Nurse Practitioner; Visit Provider Nurse Practitioner | DX: I10 Essential (primary) hypertension (principal) | CPT/HCPCS: 80053; 80061 ==

== ENCOUNTER → 2024-12-28 07:57 | Outpatient (BNVA) | payer MEDICARE, SELFPAY | PROVIDERS: PCP Nurse Practitioner; Visit Provider Nurse Practitioner | DX: I10 Essential (primary) hypertension (principal); E55.9 Vitamin D deficiency, unspecified | CPT/HCPCS: 80053; 80061; 82306; 85025 ==

== ENCOUNTER → 2025-06-20 08:06 | Outpatient (BNVA) | payer MEDICARE, SELFPAY | PROVIDERS: PCP Nurse Practitioner; Visit Provider Nurse Practitioner | DX: Z12.5 Encounter for screening for malignant neoplasm of prostate (principal); I10 Essential (primary) hypertension; E55.9 Vitamin D deficiency, unspecified | CPT/HCPCS: 80053; 80061; 82306; 82607; G0103 ==